=== PATIENT | male | born 1960 | race Caucasian/White ===

== ENCOUNTER 2017-01-10 13:35 | Day surgery (SDC) | payer MEDICARE, OTHER ==
--- NOTE | ~2017-01-10 | EGD ---
EGD REPORT [facility] [address] [address] NAME: CLARA REEDER : [birth year] STATUS : REG [facility] PAT#: [id number] AGE: 56 ADM/REG DATE : 01/10/17 MR#: [id number] REPORT SERV DATE: 01/10/17 DICTATED BY: DATE: REPORT STATUS : Draft TRANSCRIBED BY: [employer] DATE: 01/10/17 [facility] Patient Name: Clara Reeder Date of : 1960 Attending MD: SERVANDO MEHTA MD Procedure Date No Time: 01/10/2017 Procedure: Colonoscopy Indications: Iron deficiency anemia, Last colonoscopy: 2010 Referring MD: VIVIAN SANCHES Medicines: See the Anesthesia note for documentation of the administered medications Complications: No immediate complications. Procedure: Pre-Anesthesia Assessment: - ASA Grade Assessment: II - A patient with mild systemic disease. After I obtained informed consent, the scope was passed under direct vision. Throughout the procedure, the patient's blood pressure, pulse, and oxygen saturations were monitored continuously. The PCF [id number] was introduced through the anus with the intention of advancing to the cecum. The scope was advanced to the sigmoid colon before the procedure was aborted. Medications were given. The colonoscopy was performed without difficulty. The patient tolerated the procedure well. The quality of the bowel preparation was inadequate. Findings: The perianal and digital rectal examinations were normal. Internal hemorrhoids were found. Solid stool in sigmoid Impression: - Preparation of the colon was inadequate. - Internal hemorrhoids. - Solid stool in sigmoid Recommendation: - Patient has a contact number available for emergencies. The signs and symptoms of potential delayed complications were discussed with the patient. Return to normal activities tomorrow. Written discharge instructions were provided to the patient. - Regular diet. - Continue present medications. - Repeat colonoscopy soon with better prep because the bowel preparation was suboptimal. EGD REPORT [facility] [address] [address] NAME: CLARA REEDER : [birth year] STATUS : REG [facility] PAT#: [id number] AGE: 56 ADM/REG DATE : 01/10/17 MR#: [id number] REPORT SERV DATE: 01/10/17 DICTATED BY: DATE: REPORT STATUS : Draft TRANSCRIBED BY: [employer] DATE: 01/10/17 - Call office to reschedule with better prep Procedure Code(s): --- Professional --- 09488, 53, Colonoscopy, flexible, proximal to splenic flexure; diagnostic, with or without collection of specimen(s) by brushing or washing, with or without colon decompression (separate procedure) Diagnosis Code(s): --- Professional --- K64.8, Other hemorrhoids D50.9, Iron deficiency anemia, unspecified CPT copyright 2013 [employer]. All rights reserved. The codes documented in this report are preliminary and upon engine lathe tender review may be revised to meet current compliance requirements. Servando Mehta MD SERVANDO MEHTA MD 01/10/2017 2:56 PM This report has been signed electronically. Number of Addenda: 0 Note Initiated On: 01/10/2017 2:31 PM Scope Withdrawal Time 0 hours 0 minutes 0 seconds [address] [id number]
--- NOTE | ~2017-01-10 | EGD ---
EGD REPORT [facility] [address] [address] NAME: CLARA REEDER : [birth year] STATUS : REG [facility] PAT#: [id number] AGE: 56 ADM/REG DATE : 01/10/17 MR#: [id number] REPORT SERV DATE: 01/10/17 DICTATED BY: SERVANDO MEHTA DATE: 01/10/17 REPORT STATUS : Draft TRANSCRIBED BY: [facility] DATE: 01/10/17 Endoscopy [facility] Patient Name: Clara Reeder Date of : 1960 Attending MD: SERVANDO MEHTA MD Procedure Date No Time: 01/10/2017 Procedure: Upper GI endoscopy Indications: Iron deficiency anemia Referring MD: VIVIAN SANCHES Medicines: See the Anesthesia note for documentation of the administered medications Complications: No immediate complications. Procedure: Pre-Anesthesia Assessment: - ASA Grade Assessment: II - A patient with mild systemic disease. After obtaining informed consent, the endoscope was passed under direct vision. Throughout the procedure, the patient's blood pressure, pulse, and oxygen saturations were monitored continuously. The GIF H190 [id number] was introduced through the mouth, and advanced to the jejunum. The upper GI endoscopy was accomplished without difficulty. The patient tolerated the procedure well. Findings: The examined jejunum was normal. Biopsies were taken with a cold forceps for histology. A small hiatus hernia was present. Normal gastric bypass anatomy Multiple linear ulcers at gastrojejunal anastomosis, Biopsies were taken with a cold forceps for histology. Impression: - Normal examined jejunum. Biopsied. - Hiatus hernia. - Normal gastric bypass anatomy - Multiple linear ulcers at gastrojejunal anastomosis Recommendation: - Patient has a contact number available for emergencies. The signs and symptoms of potential delayed complications were discussed with the patient. Return to normal activities tomorrow. Written discharge instructions were provided to the patient. - Regular diet. - Continue present medications. - FOR YOUR BIOPSY RESULTS: Please go to EGD REPORT [address] [address] NAME: CLARA REEDER : [birth year] STATUS : REG [facility] PAT#: [id number] AGE: 56 ADM/REG DATE : 01/10/17 MR#: [id number] REPORT SERV DATE: 01/10/17 DICTATED BY: SERVANDO MEHTA DATE: 01/10/17 REPORT STATUS : Draft TRANSCRIBED BY: [employer] DATE: 01/10/17 [email or web address] and register to receive your results via the portal. Your biopsy results will be posted there in about 7 to 10 days. IF you do not see result in 10 days, call office. - Return to my office in 6 weeks. Procedure Code(s): --- Professional --- 64457, Esophagogastroduodenoscopy, flexible, transoral; with biopsy, single or multiple Diagnosis Code(s): --- Professional --- K44.9, Diaphragmatic hernia without obstruction or gangrene D50.9, Iron deficiency anemia, unspecified CPT copyright 2013 [employer]. All rights reserved. The codes documented in this report are preliminary and upon inflated pad buffer review may be revised to meet current compliance requirements. Servando Mehta MD SERVANDO MEHTA MD 01/10/2017 2:49 PM This report has been signed electronically. Number of Addenda: 0 Note Initiated On: 01/10/2017 2:26 PM Scope Withdrawal Time 0 hours 0 minutes 0 seconds [id number] [id number]
[~2017-01-10 13:35] MED LIST: CITRACAL PO; GOODY'S EX PO; IRON 65MG PO; IRON COMPLEX150 MG PO; LEVOTHYROXIN150 MCG PO; LEVOTHYROXIN75 MCG PO; LORT7 PO; LORTAB 5 PO; OTC IRON PO-DS; PAX20 PO; PCET PO; PREV30 PO; ROXICODONE15 MG PO; SYN.15 PO; SYNTHROID PO; SYNTHROID200 MCG PO; T PO; [UNRECOGNIZED DRUG - OTHER] PO
[2017-04-24] MEDS ORDERED: NEUR300 PO (15:08)
[2017-04-24] MEDS ORDERED: TESTOSTERONE IM (15:11)
== END 2017-01-10 23:59 | disposition home or self-care (01) ==
LOC: DMU 13:35
PROVIDERS: Internal Medicine Gastroenterology
PROC: 0DJD8ZZ Inspection of Lower Intestinal Tract, Via Natural or Artificial Opening Endoscopic (ICD-10-PCS; principal; 2017-01-10 15:30)
PROC: 0DBA8ZX Excision of Jejunum, Via Natural or Artificial Opening Endoscopic, Diagnostic (ICD-10-PCS; 2017-01-10 15:30)
DX: K64.8 Other hemorrhoids (principal); D50.9 Iron deficiency anemia, unspecified; K44.9 Diaphragmatic hernia without obstruction or gangrene
CPT/HCPCS: 88305